=== PATIENT | male | born 1990 | race Caucasian/White ===

== ENCOUNTER 2023-08-03 14:13 | Emergency (ER) | payer OTHER ==
[~2023-08-03] VITALS: Ht 165.1 cm; Wt 71.7 kg
[2023-08-03 14:33] VITALS: BP 136/69; TEMP 98.6; O2SAT 100
[2023-08-03] MEDS ORDERED: PHEN28OI9 RC (14:57)
[2023-08-03] MEDS ORDERED: HYDR30CR79 TP (14:57)
[2023-08-03] MEDS ORDERED: DOCU-141 PO (14:57)
== END 2023-08-03 15:17 | disposition home or self-care (01) ==
LOC: ER 14:25
DX: K64.8 Other hemorrhoids (principal); Z91.013 Allergy to seafood